=== PATIENT | female | born 1955 | race Caucasian/White ===

== ENCOUNTER 2023-10-05 08:44 | Outpatient (CLI) | payer MEDICARE, OTHER, SELFPAY ==
--- NOTE | 2023-10-05 11:00 | NEURO_ITS ---
Impression: # Known diabetic complains of increasing numbness of lower extremities. # Borderline asymmetrical neuropathy. # Needle/EMG exam neurogenic in bilateral EDB. # Clinical correlation recommended. Nerve Conduction Studies Anti Sensory Summary Table Stim Site NR Peak (ms) P-T Amp (?V) Site1 Site2 Delta-P (ms) Dist (cm) Marquez (m/s) Left Saphenous Anti Sensory (Ant Med Mall) 14cm 3.6 29.6 14cm Ant Med Mall 3.6 0.0 Right Saphenous Anti Sensory (Ant Med Mall) 14cm 3.6 52.9 14cm Ant Med Mall 3.6 0.0 Left Sup Fibular Anti Sensory (Ant Lat Mall) 14 cm 3.5 30.6 14 cm Ant Lat Mall 3.5 16.0 46 Right Sup Fibular Anti Sensory (Ant Lat Mall) NO RESPONSE 14 cm NR 14 cm Ant Lat Mall 16.0 Left Sural Anti Sensory (Lat Mall) Calf 3.5 18.7 Calf Lat Mall 3.5 16.0 46 Right Sural Anti Sensory (Lat Mall) Calf 4.2 5.0 Calf Lat Mall 4.2 16.0 38 Motor Summary Table Stim Site NR Onset (ms) O-P Amp (mV) Site1 Site2 Delta-0 (ms) Dist (cm) Marquez (m/s) Left Peroneal Motor (Vastus Med) Ankle 3.2 2.3 Popit Ankle 8.6 40.0 47 Popit 11.8 1.6 Right Peroneal Motor (Vastus Med) Ankle 3.4 0.2 Popit Ankle 7.9 38.0 48 Popit 11.3 0.8 Left Tibial Motor (Abd Hart Brev) Ankle 3.7 6.8 Knee Ankle 9.3 42.0 45 Knee 13.0 2.6 Right Tibial Motor (Abd Hart Brev) Ankle 3.6 3.2 Knee Ankle 9.5 38.0 40 Knee 13.1 2.0 F Wave Studies NR F-Lat (ms) L-R F-Lat (ms) Left Peroneal (Mrkrs) (EDB) 54.29 0.72 Right Peroneal (Mrkrs) (EDB) 53.57 0.72 Left Tibial (Mrkrs) (Abd Hallucis) 55.24 0.35 Right Tibial (Mrkrs) (Abd Hallucis) 54.89 0.35 EMG Side Muscle Nerve Root Ins Act Fibs Amp Dur Recrt Comment Right AntTibialis Dp Br Fibular L4-5 Nml Nml Nml Nml Nml Right Gastroc Tibial S1-2 Nml Nml Nml Nml Nml Right Fibularis Long Sup Br Fibular L5-S1 Nml Nml Nml Nml Nml Right Flex Dig Long Tibial L5-S2 Nml Nml Nml Nml Nml Right Ext Dig Brev Dp Br Fibular L5, S1 Nml Nml Nml >12ms +1 Left AntTibialis Dp Br Fibular L4-5 Nml Nml Nml Nml Nml Left Gastroc Tibial S1-2 Nml Nml Nml Nml Nml Left Fibularis Long Sup Br Fibular L5-S1 Nml Nml Nml Nml Nml Left Flex Dig Long Tibial L5-S2 Nml Nml Nml Nml Nml Left Ext Dig Brev Dp Br Fibular L5, S1 Nml Nml Nml >12ms +1 MTDD
== END 2023-10-05 08:45 | disposition home or self-care (01) ==
PROVIDERS: Visit Provider Internal Medicine
DX: G62.9 Polyneuropathy, unspecified (principal); E11.9 Type 2 diabetes mellitus without complications; R20.2 Paresthesia of skin
CPT/HCPCS: 95886; 95911